=== PATIENT | female | born 1955 | race Caucasian/White ===

== ENCOUNTER → 2016-10-04 | Outpatient (CLI) | payer BC ==
[~2016-10-04] MED LIST: ALBUAER2 INH; CHOL1CHW16 PO; COEN100C15 PO; FERR325T51 PO; FLNIN/ NAE; FURO-85 PO; LSN5 PO; MDRDP21 PO; PANT20TA PO; VALA1TAB31 PO
[2016-10-04 11:06] LABS: BASO % 0.3 %; BASO ABS # 0.02 K/uL (0-0.2); COMPLETE YES; EOS % 1.4 %; HEMATOCRIT 37.9 % (37-47); IG% 0.3 %; LYMPH % 18.9 %; LYMPH ABS # 1.21 K/uL (1.2-3.4); MEAN CELL VOLUME 83.1 fL (80-100); MEAN CORPUSCULAR HEMOGLOBIN 26.1 pg (25-34); MEAN CORPUSCULAR HGB CONC 31.4 g/dl (32-36); MEAN PLATELET VOLUME 12.1 fL (7.4-10.4); MONO % 9.7 %; NEUT % 69.4 %; PLATELET COUNT 211 K/uL (130-400); RED BLOOD COUNT 4.56 M/uL (4.2-5.4); WHITE BLOOD COUNT 6.39 K/uL (4.8-10.8)
[2016-10-04 12:42] LABS: ALT/SGPT 21 U/L (12-78); AST/SGOT 15 U/L (15-37); BLOOD UREA NITROGEN 13 mg/dl (7-18); BUN/CREATININE RATIO 20.6 (10-20); CALCIUM 8.8 mg/dl (8.5-10.1); CARBON DIOXIDE 30 mmol/L (21-32); CHLORIDE 104 mmol/L (98-107); CREATININE 0.63 mg/dl (0.60-1.20); GLUCOSE 77 mg/dl (70-99); POTASSIUM 4.1 mmol/L (3.5-5.1); SODIUM 140 mmol/L (136-145)
[2016-10-04 12:45] LABS: ALB/GLOB RATIO 1.1 (0.9-2); ALKALINE PHOSPHATASE 78 U/L (45-117); FERRITIN 8.2 ng/ml (8.0-388.0); TOTAL IRON BINDING CAPACITY 361 mcg/dl (250-450)
== END | disposition home or self-care (01) ==
LOC: C.LABBC 07:25
PROVIDERS: ATTEND Family Medicine
DX: D50.9 Iron deficiency anemia, unspecified (principal)

== ENCOUNTER → 2017-01-07 | Outpatient (CLI) | payer OTHER, BC ==
[~2017-01-07] MED LIST changes: -PANT20TA PO; +PANT20TA2 PO
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
== END | disposition home or self-care (01) ==
LOC: C.RADBC 08:09
PROVIDERS: ATTEND Family Medicine
DX: M54.2 Cervicalgia (principal); M54.6 Pain in thoracic spine; M54.5 Low back pain; V89.2XXA Person injured in unspecified motor-vehicle accident, traffic, initial encounter

== ENCOUNTER → 2017-02-22 | Outpatient (CLI) | payer BC ==
[2017-02-22 11:34] LABS: ALT/SGPT 20 U/L (12-78); BASO ABS # 0.05 K/uL (0-0.2); BLOOD UREA NITROGEN 18 mg/dl (7-18); BUN/CREATININE RATIO 30.7 (10-20); CALCIUM 8.9 mg/dl (8.5-10.1); CARBON DIOXIDE 27 mmol/L (21-32); CHLORIDE 106 mmol/L (98-107); CHOLESTEROL 256 mg/dl (0-200); COMPLETE YES; CREATININE 0.59 mg/dl (0.60-1.20); EOS % 2.1 %; GLUCOSE 95 mg/dl (70-99); HEMATOCRIT 32.5 % (37-47); LYMPH % 21.3 %; LYMPH ABS # 1.12 K/uL (1.2-3.4); MEAN CELL VOLUME 76.1 fL (80-100); MEAN CORPUSCULAR HEMOGLOBIN 24.1 pg (25-34); MEAN CORPUSCULAR HGB CONC 31.7 g/dl (32-36); MEAN PLATELET VOLUME 12.5 fL (7.4-10.4); MONO % 11.4 %; NEUT % 64.2 %; PLATELET COUNT 207 K/uL (130-400); POTASSIUM 4.2 mmol/L (3.5-5.1); RED BLOOD COUNT 4.27 M/uL (4.2-5.4); SODIUM 140 mmol/L (136-145); TRIGLYCERIDES 58 mg/dl (0-150); VERY LOW DENSITY LIPOPROT CALC 12 mg/dl; WHITE BLOOD COUNT 5.26 K/uL (4.8-10.8)
[2017-02-22 11:38] LABS: ALKALINE PHOSPHATASE 72 U/L (45-117); AST/SGOT 12 U/L (15-37); CHOLESTEROL/HDL RATIO 5.6; FERRITIN 3.2 ng/ml (8.0-388.0); HDL CHOLESTEROL 46 mg/dl; LDL CHOLESTEROL CALCULATED 198 mg/dl; TOTAL IRON BINDING CAPACITY 389 mcg/dl (250-450)
== END | disposition home or self-care (01) ==
LOC: C.LABBC 07:17
PROVIDERS: ATTEND Family Medicine
DX: I10 Essential (primary) hypertension (principal); D50.9 Iron deficiency anemia, unspecified; E78.5 Hyperlipidemia, unspecified

== ENCOUNTER → 2017-05-18 | Outpatient (CLI) | payer BC ==
[~2017-05-18] MED LIST changes: +PANT20TA PO; -PANT20TA2 PO
--- NOTE | 2017-05-18 14:20 | MAMMOGRAPHY REPORT ---
BILATERAL DIGITAL SCREENING MAMMOGRAM TOMOSYNTHESIS WITH CAD: 05/18/2017 CLINICAL HISTORY: Routine screening. Patient has no complaints. TECHNIQUE: Breast tomosynthesis in addition to standard 2D mammography was performed. Current study was also evaluated with a Computer Aided Detection (CAD) system. COMPARISON: Comparison is made to exams dated: 04/28/2016 mammogram, 12/25/2014 mammogram, 07/06/2012 m ammogram, 07/11/2013 mammogram, 06/25/2011 mammogram, and 04/06/2010 mammogram - [facility] enter. BREAST COMPOSITION: The tissue of both breasts is almost entirely fatty. FINDINGS: The parenchymal pattern is unchanged. No developing mass, architectural distortion or clus ter of suspicious microcalcifications is seen in either breast. IMPRESSION: ACR BI-RADS CATEGORY 2: BENIGN There is no mammographic evidence of malignancy. A 1 year screening mammogram is recommended. The pa tient will receive written notification of the results. Approximately 10% of breast cancers are not detected with mammography. A negative mammographic report should not delay biopsy if a clinically suggestive mass is present. Ronda Hdz M.D. ay/:05/18/2017 12:44:20 Floor Plan Adjuster: Gabby SHAW(Glnen)(M), [facility] letter sent: Normal 1/2 BI-RADS Code: ACR BI-RADS Category 2: Benign
== END | disposition home or self-care (01) ==
LOC: C.MAMM 12:09
PROVIDERS: ATTEND Obstetrics & Gynecology
DX: Z12.31 Encounter for screening mammogram for malignant neoplasm of breast (principal)

== ENCOUNTER → 2017-08-24 | Outpatient (CLI) | payer BC ==
[~2017-08-24] MED LIST changes: -PANT20TA PO; +PANT20TA2 PO
[2017-08-24 10:48] LABS: BASO % 0.3 %; BASO ABS # 0.02 K/uL (0-0.2); COMPLETE YES; HEMATOCRIT 33.8 % (37-47); IG% 0.3 %; LYMPH % 12.7 %; LYMPH ABS # 0.79 K/uL (1.2-3.4); MEAN CELL VOLUME 84.5 fL (80-100); MEAN CORPUSCULAR HEMOGLOBIN 26.5 pg (25-34); MEAN CORPUSCULAR HGB CONC 31.4 g/dl (32-36); MEAN PLATELET VOLUME 12.1 fL (7.4-10.4); MONO % 13.7 %; PLATELET COUNT 190 K/uL (130-400); WHITE BLOOD COUNT 6.21 K/uL (4.8-10.8)
[2017-08-24 10:59] LABS: ALT/SGPT 23 U/L (12-78); AST/SGOT 15 U/L (15-37); BLOOD UREA NITROGEN 11 mg/dl (7-18); BUN/CREATININE RATIO 21.4 (10-20); CALCIUM 8.3 mg/dl (8.5-10.1); CARBON DIOXIDE 30 mmol/L (21-32); CHLORIDE 104 mmol/L (98-107); CHOLESTEROL 237 mg/dl (0-200); GLUCOSE 90 mg/dl (70-99); SODIUM 136 mmol/L (136-145); TRIGLYCERIDES 61 mg/dl (0-150); VERY LOW DENSITY LIPOPROT CALC 12 mg/dl
[2017-08-24 11:08] LABS: ALB/GLOB RATIO 0.8 (0.9-2); ALKALINE PHOSPHATASE 98 U/L (45-117); CHOLESTEROL/HDL RATIO 4.6; FERRITIN 9.5 ng/ml (8.0-388.0); HDL CHOLESTEROL 52 mg/dl; LDL CHOLESTEROL CALCULATED 173 mg/dl; TOTAL IRON BINDING CAPACITY 379 mcg/dl (250-450)
== END | disposition home or self-care (01) ==
LOC: C.LABBC 07:27
PROVIDERS: ATTEND Internal Medicine
DX: E78.5 Hyperlipidemia, unspecified (principal); I10 Essential (primary) hypertension; K21.9 Gastro-esophageal reflux disease without esophagitis; K44.9 Diaphragmatic hernia without obstruction or gangrene; D50.9 Iron deficiency anemia, unspecified; Z68.42 Body mass index [BMI] 45.0-49.9, adult; E55.9 Vitamin D deficiency, unspecified

== ENCOUNTER → 2017-08-25 | Outpatient (CLI) | payer BC ==
[~2017-08-25] MED LIST changes: +ALBU18002 INH; +CHOLCAP5 PO; +FERR1TAB13 PO; +LISI-730 PO; -LSN5 PO; +PANT40TA PO; +VNTHFA/IN INH; +[UNRECOGNIZED DRUG - CODE] PV
== END | disposition home or self-care (01) ==
LOC: C.PAPS 09:40
PROVIDERS: ATTEND Obstetrics & Gynecology
DX: Z01.411 Encounter for gynecological examination (general) (routine) with abnormal findings (principal); N76.0 Acute vaginitis

== ENCOUNTER → 2017-11-30 | Outpatient (CLI) | payer BC ==
[~2017-11-30] MED LIST changes: -ALBU18002 INH; -CHOLCAP5 PO; -FERR1TAB13 PO; -LISI-730 PO; +LSN5 PO; -PANT40TA PO; -VNTHFA/IN INH; -[UNRECOGNIZED DRUG - CODE] PV
[2017-11-30 11:17] LABS: BASO % 0.6 %; BASO ABS # 0.03 K/uL (0-0.2); EOS % 1.2 %; EOS ABS # 0.06 K/uL (0-0.5); HEMATOCRIT 33.6 % (37-47); HEMOGLOBIN 10.7 g/dL (12.0-16.0); IG# 0.01 K/uL (0.00-0.02); LYMPH % 21.3 %; LYMPH ABS # 1.03 K/uL (1.2-3.4); MEAN CELL VOLUME 85.7 fL (80-100); MEAN CORPUSCULAR HEMOGLOBIN 27.3 pg (25-34); MEAN CORPUSCULAR HGB CONC 31.8 g/dl (32-36); MEAN PLATELET VOLUME 11.5 fL (7.4-10.4); MONO % 10.8 %; MONO ABS # 0.52 K/uL (0.11-0.59); NEUT % 65.9 %; NEUT ABS # 3.18 K/uL (1.4-6.5); PLATELET COUNT 248 K/uL (130-400); RED CELL DISTRIBUTION WIDTH SD 46.9 fL (36.4-46.3); WHITE BLOOD COUNT 4.83 K/uL (4.8-10.8)
== END | disposition home or self-care (01) ==
LOC: C.LABBC 07:19
PROVIDERS: ATTEND Internal Medicine
DX: I10 Essential (primary) hypertension (principal); K44.9 Diaphragmatic hernia without obstruction or gangrene; D50.9 Iron deficiency anemia, unspecified

== ENCOUNTER → 2018-01-13 | Day surgery (SDC) | payer BC ==
[2018-01-12 13:29] VITALS: Ht 162.6 cm; Wt 116.8 kg
[~2018-01-13] VITALS: Ht 162.6 cm; Wt 116.8 kg
[~2018-01-13] MED LIST changes: +ALBU18002 INH; -ALBUAER2 INH; -CHOL1CHW16 PO; +CHOLCAP5 PO; -COEN100C15 PO; +FERR1TAB13 PO; -FERR325T51 PO; +LIDOCAINE HCL 2% 2 ML VIAL (20MG/ML) ONE; -MDRDP21 PO; -PANT20TA2 PO; +PANT40TA PO; +PROPOFOL IV EMULSION 10 MG/ML 20 ML VIAL ONE; +SODIUM CHLORIDE 0.9% 500ML 500 ML IV ONE; +VNTHFA/IN INH; +[UNRECOGNIZED DRUG - CODE] PV
--- NOTE | 2018-01-13 09:57 | Endo History and Physical ---
History & Physical Date of Service: January 13, 2018. Chief Complaint: GERD, IRON DEFICIENCY ANEMIA Referring Physician: Dr. Cristopher Caba History of Present Illness 62 yo CF who presents for EGD secondary to GERD and iron deficiency anemia. Past Medical History Gastrointestinal Disorder, Reflux, High Cholesterol, Hypertension Past Surgical History Hx Cardiac Surgery: No Hx Internal Defibrillator: No Hx Pacemaker: No Hx Abdominal Surgery: Yes (APPY, ) Hx of Implantable Prosthesis: No Hx Post-Op Nausea and Vomiting: No Hx Cancer Surgery: No Hx Thoracic Surgery: Yes (LUMBAR FUSION) Hx Orthopedic: Yes (RT FOOT SX ) Hx Urinary Tract Surgery: No Family History None Social History Smoking Status: Never Smoker Hx Substance Use: No Hx Alcohol Use: Yes (OCCASSIONALLY) Allergies Coded Allergies: Sulfa Antibiotics (Verified Allergy, Unknown, Unknown, 01/12/18) Aspirin (Verified Adverse Reaction, Unknown, Ulcers, 01/12/18) Current Medications Reported Home Medications Medications Dose Route/Sig Max Daily Dose Days Date Category Estradiol (Estradiol Vaginal) 0.1 Mg/Gm Cre 0.5 Mg PV MONTHLY 01/12/18 Reported Proair Respiclick (Albuterol Sulfate) 108 Mcg/Act Aer 1-2 Puffs INH Q4 PRN 01/12/18 Reported Kp Ferrous Sulfate (Ferrous Sulfate) 325 Mg Tab 1 Tab PO DAILY 30 01/12/18 Reported Vitamin D3 (Cholecalciferol) 5,000 Unit Cap 1 Cap PO DAILY 01/12/18 Reported Ventolin Hfa (Albuterol) 200 Puffs/87485 Mcg Aers 2-4 Puffs INH UD PRN 01/12/18 Reported Protonix (Pantoprazole Sodium) 40 Mg Tab 1 Tab PO DAILY 30 01/12/18 Reported Valtrex (Valacyclovir Hcl) 1 Gm Tab 1 Gm PO BID PRN 02/08/16 Reported Lasix (Furosemide) 20 Mg Tab 20 Mg PO QAM 02/08/16 Reported Fluticasone Propionate 120 Sprays/6000 Mcg Inha 2 Sprays DONNA DAILY PRN 12/12/14 Reported Lisinopril 5 Mg Tab 5 Mg PO QAM 12/12/14 Reported Vital Signs Weight (Kilograms): 116.82 Height (Feet): 5 Height (Inches): 4 Date Time Temp Pulse Resp B/P (MAP) Pulse Ox O2 Delivery O2 Flow Rate FiO2 01/13/18 09:20 36.6 84 20 153/82 (105) 97 Room Air Physical Exam General Appearance: WD/WN, no apparent distress Respiratory/Chest: Auscultation: breath sounds normal Cardiovascular: Heart Auscultation: RRR Abdomen: Bowel Sounds: normal Inspection & Palpation: soft, non-distended, no tenderness, guarding & rebound Assessment and Plan Assessment: 62 yo CF who presents for EGD secondary to GERD and iron deficiency anemia. Plan: Proceed with EGD.
--- NOTE | 2018-01-13 10:39 | GI REPORT ---
Patient Name: Darling Carson Procedure Date: 01/13/2018 10:04 AM Date of : 1955 Admit Type: Outpatient Age: 62 Gender: Female Attending MD: Stuart Mathias DO Procedure: Upper GI endoscopy Providers: Stuart Mathias DO Referring MD: Cristopher Caba Indications: Iron deficiency anemia, Esophageal reflux Medicines: Monitored Anesthesia Care Complications: No immediate complications. Estimated Blood Loss: Estimated blood loss: none. Procedure: Pre-Anesthesia Assessment: - Prior to the procedure, a History and Physical was performed, and patient medications and allergies were reviewed. The patient's tolerance of previous anesthesia was also reviewed. The risks and benefits of the procedure and the sedation options and risks were discussed with the patient. All questions were answered, and informed consent was obtained. Prior Anticoagulants: The patient has taken no previous anticoagulant or antiplatelet agents. ASA Grade Assessment: III - A patient with severe systemic disease. After reviewing the risks and benefits, the patient was deemed in satisfactory condition to undergo the procedure. After obtaining informed consent, the endoscope was passed under direct vision. Throughout the procedure, the patient's blood pressure, pulse, and oxygen saturations were monitored continuously. The On-site loaner was introduced through the mouth, and advanced to the second part of duodenum. The upper GI endoscopy was accomplished without difficulty. The patient tolerated the procedure well. Findings: The esophagus was normal. A medium-sized hiatal hernia was present. Biopsies were taken with a cold forceps in the gastric antrum for Helicobacter pylori testing. The examined duodenum was normal. Biopsies for histology were taken with a cold forceps for evaluation of celiac disease. Impression: - Normal esophagus. - Medium-sized hiatal hernia. - Normal examined duodenum. Biopsied. - Biopsies were taken with a cold forceps for Helicobacter pylori testing. Recommendation: - Resume previous diet. - Continue present medications. - Await pathology results. - Return to primary care physician as previously scheduled. Stuart Mathias DO 01/13/2018 10:39:12 AM This report has been signed electronically. Note Initiated On: 01/13/2018 10:04 AM Number of Addenda: 0 I attest to the content of the Intraoperative Record and orders documented therein, exceptions below {[id number]}
--- NOTE | 2018-01-13 10:40 | Discharge Instructions ---
Endoscopy Patient Instructions Date / Procedure(s) Performed January 13, 2018. EGD Allergy Information Coded Allergies: Sulfa Antibiotics (Verified Allergy, Unknown, Unknown, 01/12/18) Aspirin (Verified Adverse Reaction, Unknown, Ulcers, 01/12/18) Discharge Date / Findings January 13, 2018. Duodenal biopsies Gastric antrum biopsies Hiatal hernia Medication Instructions OK to resume all medications today as prescribed Reported Home Medications Medications Dose Route/Sig Max Daily Dose Days Date Category Estradiol (Estradiol Vaginal) 0.1 Mg/Gm Cre 0.5 Mg PV MONTHLY 01/12/18 Reported Proair Respiclick (Albuterol Sulfate) 108 Mcg/Act Aer 1-2 Puffs INH Q4 PRN 01/12/18 Reported Kp Ferrous Sulfate (Ferrous Sulfate) 325 Mg Tab 1 Tab PO DAILY 30 01/12/18 Reported Vitamin D3 (Cholecalciferol) 5,000 Unit Cap 1 Cap PO DAILY 01/12/18 Reported Ventolin Hfa (Albuterol) 200 Puffs/83780 Mcg Aers 2-4 Puffs INH UD PRN 01/12/18 Reported Protonix (Pantoprazole Sodium) 40 Mg Tab 1 Tab PO DAILY 30 01/12/18 Reported Valtrex (Valacyclovir Hcl) 1 Gm Tab 1 Gm PO BID PRN 02/08/16 Reported Lasix (Furosemide) 20 Mg Tab 20 Mg PO QAM 02/08/16 Reported Fluticasone Propionate 120 Sprays/6000 Mcg Inha 2 Sprays DONNA DAILY PRN 12/12/14 Reported Lisinopril 5 Mg Tab 5 Mg PO QAM 12/12/14 Reported Provider Instructions Activity Restrictions - No exercising or heavy lifting for 24 hours. - Do not drink alcohol the day of the procedure. - Do not drive a car or operate machinery until the day after the procedure. - Do not make any important decisions or sign important papers in 24 hours after the procedure. Following Day: - Return to full activity which may include returning to work/school. Diet Start your diet with liquids and light foods (jello, soup, juice, toast). Then eat your usual diet if not nauseated. Treatment For Common After Affects For mild abdominal pain, bloating, or excessive gas: - Rest - Eat lightly - Lie on right side Follow-Up Information Follow-up with Dr. Cristopher Caba as scheduled Anesthesia Information What You Should Know You have had a procedure that required some medicine to reduce anxiety and discomfort. This treatment is called moderate sedation. After receiving the treatment, you may be sleepy, but you will be able to breathe on your own. The effects of the treatment may last for several hours. Follow these instructions along with Activity/Diet recommendations noted above: * Do NOT do anything where dizziness or clumsiness would be dangerous. * Rest quietly at home today, then you can be up and about tomorrow. * Have a responsible person stay with you the rest of today. * You may have had an I.V. today. If so, you may take the dressing off later today. Recommendations Call your doctor if: * Trouble breathing * Continuous vomiting for more than 24 hours * Temperature above 101 degrees * Severe abdominal pain or bloating * Pain not relieved by pain medicine ordered * There is increased drainage or redness from any incision * A large amount of rectal bleeding greater than 2-3 tablespoons. (If you had a polyp/s removed or have hemorrhoids, a small amount of blood - from the rectum is to be expected.) * You have any unanswered questions or concerns. IN THE EVENT OF A SERIOUS EMERGENCY, GO TO THE NEAREST EMERGENCY ROOM Your discharge instructions were prepared by provider Stuart Mathias. Patient Instructions Signature Page Darling Carson Patient (or Guardian) Signature/Date: I have read and understand the instructions given to me by my caregivers. Caregiver/RN/Doctor Signature/Date: The above-named patient and/or guardian has received patient instructions on this date. + Original Patient Signature Page (only) stays with chart. Please make copy for patient.
--- NOTE | 2018-01-13 10:50 | Anesthesiology Progress Note ---
Anesthesia Post Op Note Date & Time January 13, 2018 at 10:50 Vital Signs Pain Intensity: 0 Vital Signs Past 12 Hours Date Time Temp Pulse Resp B/P (MAP) Pulse Ox O2 Delivery O2 Flow Rate FiO2 01/13/18 10:37 36.4 84 20 121/80 (94) 100 Room Air 01/13/18 09:20 36.6 84 20 153/82 (105) 97 Room Air Notes Mental Status: alert / awake / arousable, participated in evaluation Pt Amnestic to Procedure: Yes Nausea / Vomiting: adequately controlled Pain: adequately controlled Airway Patency, RR, SpO2: stable & adequate BP & HR: stable & adequate Hydration State: stable & adequate Anesthetic Complications: no major complications apparent
[2018-01-13 11:06] VITALS: BP 141/75; PULSE 81; O2SAT 98
== END | disposition home or self-care (01) ==
LOC: C.GI 08:55
PROVIDERS: ATTEND Internal Medicine
DX: K21.9 Gastro-esophageal reflux disease without esophagitis (principal); K44.9 Diaphragmatic hernia without obstruction or gangrene; D50.9 Iron deficiency anemia, unspecified; I10 Essential (primary) hypertension; Z88.2 Allergy status to sulfonamides; Z90.49 Acquired absence of other specified parts of digestive tract; Z98.1 Arthrodesis status